=== PATIENT | female | born 1975 | race Caucasian/White ===

== ENCOUNTER 2018-10-13 13:39 | Emergency (ER) | payer OTHER ==
[2018-10-13 13:54] VITALS: BP 112/66; PULSE 70; TEMP 98.8; BMI 31.5
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
== END 2018-10-13 15:25 | disposition home or self-care (01) ==
LOC: JERFT 13:39
DX: M54.5 Low back pain (principal); M54.6 Pain in thoracic spine; V43.52XA Car driver injured in collision with other type car in traffic accident, initial encounter; Y92.414 Local residential or business street as the place of occurrence of the external cause; Y93.89 Activity, other specified; Y99.8 Other external cause status
CPT/HCPCS: 72100-TC-FY; 84703; 99282-25